=== PATIENT | female | born 1980 | race Caucasian/White ===

== ENCOUNTER 2019-03-14 16:15 | Emergency (ER) | payer OTHER ==
[~2019-03-14] VITALS: Ht 149.8 cm; Wt 56.7 kg
[2019-03-14] MEDS ORDERED: CEFADROXIL500 M1 PO (17:00)
== END 2019-03-14 17:31 | disposition home or self-care (01) ==
LOC: ED 16:15
DX: S61.213A Laceration without foreign body of left middle finger without damage to nail, initial encounter (principal); S61.214A Laceration without foreign body of right ring finger without damage to nail, initial encounter; S61.215A Laceration without foreign body of left ring finger without damage to nail, initial encounter; Z88.1 Allergy status to other antibiotic agents; W25.XXXA Contact with sharp glass, initial encounter; Y93.89 Activity, other specified; Y92.89 Other specified places as the place of occurrence of the external cause; Y99.8 Other external cause status